=== PATIENT | female | born 1970 | race Caucasian/White ===

== ENCOUNTER 2016-11-13 14:12 | Emergency (ER) | payer OTHER ==
[~2016-11-13] VITALS: Ht 162.6 cm; Wt 79.0 kg
[2016-11-13 14:16] VITALS: Ht 162.6 cm; Wt 79.0 kg
[2016-11-13] MEDS ORDERED: TETRACAINE 0.5% 4 ML OPH LEFT EYE ONE (15:30)
[2016-11-13] MEDS ORDERED: FLUORESCEIN STRIP LEFT EYE ONE (15:30)
[2016-11-13] MEDS ORDERED: ERYTOPOI LEFT EYE (16:19)
--- NOTE | 2016-11-13 16:25 | ERD ---
ER Documentation Chief Complaint Date/Time DATE: 11/13/16 TIME: 16:23 Chief Complaint lt eye redness , feels something went into eye HPI This 46 old female who presents the emergency department today complaining of some left eye redness and that she feels that something "went into her eye". Patient states that she got into bed last night and pulled the sheets up towards her and she felt like something flew in her eye. States that she tried using some eyedrops to rinse out her eye. States that she was recently diagnosed with glaucoma. Denies any previous trauma. ROS All systems reviewed and are negative except as per history of present illness. Medications Home Meds Active Scripts Erythromycin* (Erythromycin* Ophthalmic) 1 Applic Oint, 1 APPLIC LEFT EYE QID for 7 Days, EA Prov:BRISA DUNN PA-C 11/13/16 Allergies Allergies: Uncoded Allergies: AMOXICILLINS (Allergy, Unknown, 11/13/16) PMhx/Soc History of Surgery: Yes (csection ) Anesthesia Reaction: No Hx Neurological Disorder: No Hx Respiratory Disorders: No Hx Cardiac Disorders: Yes (cholesterol) Hx Psychiatric Problems: No Hx Alcohol Use: No Hx Substance Use: No Hx Tobacco Use: No Physical Exam Vitals Vital Signs Date Time Temp Pulse Resp B/P Pulse Ox O2 Delivery O2 Flow Rate FiO2 11/13/16 14:16 99.1 90 18 134/82 98 Physical Exam Const: Was not, no acute distress Head: Atraumatic Eyes: Eye with conjunctival erythema. No evidence of foreign body. No purulent drainage. ENT: Normal External Ears, Nose and Mouth. Neck: Full range of motion..~ No meningismus. Resp: Clear to auscultation bilaterally Cardio: Regular rate and rhythm, no murmurs Skin: No petechiae or rashes Neur: Awake and alert Psych: Normal Mood and Affect Results 24 hrs Current Medications Medications (Trade) Dose Ordered Sig/Angeles Route PRN Reason Start Time Stop Time Status Last Admin Dose Admin Fluorescein Sodium (Vcjib-N-Olimk) 1 strip ONCE ONCE LEFT EYE 11/13/16 15:30 11/13/16 15:31 DC Tetracaine HCl (Tetracaine 0.5% Steri-Unit Adriana) 1 drop ONCE ONCE LEFT EYE 11/13/16 15:30 11/13/16 15:31 DC Procedures/MDM This 46-year-old female who presents the emergency department today for a foreign body sensation in her left eye after feeling that something went into her eye when she pulled the sheets up towards her last night while getting into bed. Visual acuity left eye 20/20 Right eye 20/20 Bilateral 20/20 She is I was irrigated with normal saline here in the emergency department I did do a fluorescein stain with a Hassan lamp that showed no evidence of foreign body. No evidence of corneal abrasion however I will treat the patient with erythromycin. Patient reported feeling symptomatically better. Low suspicion for foreign body, corneal abrasion, retinal detachment, globe rupture, hyphema. Patient does have an choir accompanist and is scheduled for an appointment in the next couple of weeks. I have explained to the patient that she should call them tomorrow to try to be seen sooner. Patient understood. At this time the patient is stable for discharge and outpatient management. Patient should follow up with their PCP in the next 1-2 days. They may return to the emergency department sooner for any persistent or worsening of symptoms. Patient understood and agreed with the plan. Departure Diagnosis: Primary Impression: Eye problem Condition: Fair Patient Instructions: Conjunctival Foreign Body, Resolved, Corneal Abrasion Referrals: your opthamologist Additional Instructions: Call your primary care doctor TOMORROW for an appointment during the next 1-2 days.See the doctor sooner or return here if your condition worsens before your appointment time. Take antibiotics as prescribed Make an appointment with her choir accompanist tomorrow BRISA DUNN PA-C Nov 13, 2016 16:24
== END 2016-11-13 16:27 | disposition home or self-care (01) ==
LOC: FTE 14:12
DX: H57.8 Other specified disorders of eye and adnexa (principal)
CPT/HCPCS: Z7502; Z7610; 99283